=== PATIENT | male | born 1960 | race Caucasian/White ===

== ENCOUNTER 2019-09-01 02:38 | Emergency (ER) | payer SELFPAY ==
[~2019-09-01] VITALS: Ht 177.8 cm; Wt 90.8 kg
[2019-09-01 02:38] VITALS: BP 140/90
[2019-09-01] MEDS ORDERED: HYDR-3165 PO (03:32)
--- NOTE | 2019-09-01 03:33 | PHYS DOC ---
Past History Past Medical History: Alcoholism, Other Additional Past Medical Histor: hx of injury to rt hand Past Surgical History: Other Additional Past Surgical Histo: rt hand reconstruction Alcohol Use: Heavy General Adult EDM: Chief Complaint: ANKLE PROBLEM HPI: HPI: 59-year-old male presents with left ankle and posterior foot pain. The patient was jogging past [employer] when there was a stack of gravel or dirt on a pallet in the path. He jumped up on top of this palate went across it and then jumped off. When he landed he hit with his left foot first. This is when he had sudden onset of pain in the heel. He tried to put up with it for a couple of hours, but it is extremely painful to walk and it got very swollen so he came into the emergency room. The patient is a daily alcohol drinker. He used to do methamphetamines, but denies any use recently. He is currently living in his car. He denies any other injuries or complaints. Review of Systems: Review of Systems: Constitutional: Denies fever or chills Eyes: Denies change in visual acuity HENT: Denies nasal congestion or sore throat Respiratory: Denies cough or shortness of breath Cardiovascular: Denies chest pain or edema GI: Denies abdominal pain, nausea, vomiting, bloody stools or diarrhea : Denies dysuria Musculoskeletal: Left foot and ankle pain Integument: Denies rash Neurologic: Denies headache, focal weakness or sensory changes Endocrine: Denies polyuria or polydipsia Lymphatic: Denies swollen glands Psychiatric: Denies depression or anxiety Heart Score: Risk Factors: Risk Factors: DM, Current or recent (<one month) smoker, HTN, HLP, family history of CAD, obesity. Risk Scores: Score 0 - 3: 2.5% MACE over next 6 weeks - Discharge Home Score 4 - 6: 20.3% MACE over next 6 weeks - Admit for Clinical Observation Score 7 - 10: 72.7% MACE over next 6 weeks - Early Invasive Strategies Allergies: Allergies: Allergies Coded Allergies Type Severity Reaction Last Updated Verified No Known Drug Allergies 09/01/19 No Physical Exam: PE: Constitutional: Well developed, well nourished, no acute distress, non-toxic appearance. [] HENT: Normocephalic, atraumatic, bilateral external ears normal, oropharynx moist, no oral exudates, nose normal. [] Eyes: PERRLA, EOMI, conjunctiva normal, no discharge. [] Neck: Normal range of motion, no tenderness, supple, no stridor. [] Cardiovascular:Heart rate regular rhythm, no murmur [] Lungs & Thorax: Bilateral breath sounds clear to auscultation [] Abdomen: Bowel sounds normal, soft, no tenderness, no masses, no pulsatile masses. [] Skin: Warm, dry, no erythema, no rash. [] Back: No tenderness, no CVA tenderness. [] Extremities: Swollen and tender to the touch left inferior foot and lower ankle. [] Neurologic: Alert and oriented X 3, normal motor function, normal sensory function, no focal deficits noted. [] Psychologic: Affect normal, judgement normal, mood normal. [] Current Patient Data: Vital Signs: Vital Signs Date Time Temp Pulse Resp B/P (MAP) Pulse Ox O2 Delivery O2 Flow Rate FiO2 09/01/19 02:38 98.9 95 22 140/90 (107) 97 Room Air EKG: EKG: [] Radiology/Procedures: Radiology/Procedures: [] Impressions: Left ankle 3 views, left foot 3 views. HISTORY: Jumped from height, pain lateral Left ankle 3 views were taken the left ankle. There is soft tissue swelling. There is slight spurring at the tip of the medial malleolus. There is a bone density adjacent to the medial malleolus possibly a small avulsion small focus of dystrophic calcification. There is a comminuted depressed fracture of the calcaneus. Left foot 3 views were taken of the left foot. There is a comminuted depressed fracture of the calcaneus. No other fracture is noted involving the left foot. IMPRESSION: 1. Left calcaneus fracture. 2. No other fracture noted left foot. 3. Small avulsion versus a dystrophic calcification at the medial malleolus. Electronically signed by: Eliana Amaya MD (09/01/2019 3:30 AM) [id number] DICTATED AND SIGNED BY: ELIANA AMAYA MD DATE: 09/01/19 0330 CC: EWA CARTER DO ~ Course & Med Decision Making: Course & Med Decision Making Pertinent Labs and Imaging studies reviewed. (See chart for details) The patient sustained a calcaneal fracture. We will place him in a splint and refer him to orthopedics. We will also give him crutches. I will discharge him with [place] 5/325 for pain. He is stable for discharge at this time. [] Bert Disclaimer: Bert Disclaimer: This electronic medical record was generated, in whole or in part, using a voice recognition dictation system. Departure Departure: Impression: Primary Impression: Left calcaneal fracture Qualified Codes: S92.015A - Nondisplaced fracture of body of left calcaneus, initial encounter for closed fracture Disposition: HOME/RESIDENCE PRIOR TO ADM Condition: STABLE Patient Instructions: Calcaneal Fracture Additional Instructions: You need to follow-up with orthopedics for a cast or to discuss surgery. You can call the [facility] orthopedic group at [phone] to set up an appointment as soon as possible. Scripts Hydrocodone Bit/Acetaminophen (NORCO 5-325 TABLET) 1 Each Tablet 1 TAB PO PRN Q6HRS PRN for PAIN, #10 TAB 0 Refills Prov: EWA CARTER DO 09/01/19 Justification of Admission: Justification of Admission: Justification of Admission Dx: N/A EWA CARTER DO Sep 01, 2019 03:33
[2019-09-01] MEDS ORDERED: HYDROcodone/APAP 5/325MG 1 TAB TABLET PO ONE (04:00)
== END 2019-09-01 04:05 | disposition home or self-care (01) ==
LOC: ER 02:38
DX: S92.015A Nondisplaced fracture of body of left calcaneus, initial encounter for closed fracture (principal); F10.20 Alcohol dependence, uncomplicated; Y90.9 Presence of alcohol in blood, level not specified; X50.9XXA Other and unspecified overexertion or strenuous movements or postures, initial encounter; Y93.39 Activity, other involving climbing, rappelling and jumping off; Y92.89 Other specified places as the place of occurrence of the external cause; Y99.8 Other external cause status
CPT/HCPCS: 29515; 73610; 73630; 99284